=== PATIENT | male | born 1995 | race Caucasian/White ===

== ENCOUNTER → 2016-07-18 | Outpatient (CLI) | payer OTHER ==
[~2016-07-18] MED LIST: ABL/5 PO; ALBUAER2 INH; AMOX250C3 PO; ATV/1 SL; HYDR-3124 PO; LAMO25TA PO; LISD70CA PO; PLMIN90 IN; SERT1TAB68 PO; SNG10 PO
[2016-07-18 14:48] LABS: BASO % 0.3 %; BASO ABS # 0.02 K/uL (0-0.2); COMPLETE YES; EOS % 0.6 %; HEMATOCRIT 46.9 % (42-52); IG% 0.1 %; LYMPH % 27.8 %; LYMPH ABS # 1.93 K/uL (1.2-3.4); MEAN CELL VOLUME 86.2 fL (80-100); MEAN CORPUSCULAR HEMOGLOBIN 29.4 pg (25-34); MEAN CORPUSCULAR HGB CONC 34.1 g/dl (32-36); MONO % 10.5 %; NEUT % 60.7 %; PLATELET COUNT 234 K/uL (130-400); RED BLOOD COUNT 5.44 M/uL (4.7-6.1); WHITE BLOOD COUNT 6.95 K/uL (4.8-10.8)
[2016-07-18 15:29] LABS: BLOOD UREA NITROGEN 17 mg/dl (7-18); CARBON DIOXIDE 27 mmol/L (21-32); CHLORIDE 104 mmol/L (98-107); POTASSIUM 3.4 mmol/L (3.5-5.1); SODIUM 140 mmol/L (136-145)
[2016-07-18 15:51] LABS: URINE APPEARANCE CLEAR (CLEAR); URINE BILIRUBIN NEG (NEG); URINE COLOR YELLOW; URINE NITRITE NEG (NEG); URINE SPECIFIC GRAVITY 1.023 (1.000-1.030); UROBILINOGEN NEG (NEG)
[2016-07-18 15:57] LABS: MANUAL MICROSCOPIC REQUIRED? NO; REVIEW REQ? NO
== END | disposition home or self-care (01) ==
LOC: C.RAD 14:19
PROVIDERS: ATTEND Psychiatry & Neurology Psychiatry
DX: F31.9 Bipolar disorder, unspecified (principal)

== ENCOUNTER → 2016-08-10 | Outpatient (CLI) | payer OTHER | END | disposition home or self-care (01) | LOC: C.LAB 07:37 | PROVIDERS: ATTEND Psychiatry & Neurology Psychiatry | DX: F90.1 Attention-deficit hyperactivity disorder, predominantly hyperactive type (principal); F31.9 Bipolar disorder, unspecified ==

== ENCOUNTER → 2016-09-04 | Outpatient (CLI) | payer OTHER | END | disposition home or self-care (01) | LOC: C.LAB 08:21 | PROVIDERS: ATTEND Psychiatry & Neurology Psychiatry | DX: F90.1 Attention-deficit hyperactivity disorder, predominantly hyperactive type (principal); F31.9 Bipolar disorder, unspecified ==

== ENCOUNTER → 2017-03-01 | Outpatient (CLI) | payer OTHER ==
[2017-03-01 09:50] LABS: ESTIMATED AVERAGE GLUCOSE 108 mg/dl; HA1C FLAG Normal (Normal)
[2017-03-01 09:51] LABS: ALT/SGPT 45 U/L (12-78); AST/SGOT 43 U/L (15-37); BLOOD UREA NITROGEN 14 mg/dl (7-18); BUN/CREATININE RATIO 13.4 (10-20); CALCIUM 9.3 mg/dl (8.5-10.1); CARBON DIOXIDE 27 mmol/L (21-32); CHLORIDE 105 mmol/L (98-107); CREATININE 1.04 mg/dl (0.60-1.40); GLUCOSE 102 mg/dl (70-99); SODIUM 138 mmol/L (136-145)
[2017-03-01 10:00] LABS: ALB/GLOB RATIO 1.1 (0.9-2); ALKALINE PHOSPHATASE 95 U/L (45-117); CHOLESTEROL 126 mg/dl (0-200); CHOLESTEROL/HDL RATIO 2.8; HDL CHOLESTEROL 45 mg/dl; LDL CHOLESTEROL CALCULATED 56 mg/dl; TRIGLYCERIDES 124 mg/dl (0-150); VERY LOW DENSITY LIPOPROT CALC 25 mg/dl
== END | disposition home or self-care (01) ==
LOC: C.LAB 07:41
PROVIDERS: ATTEND Student in an Organized Health Care Education/Training Program
DX: Z79.899 Other long term (current) drug therapy (principal)

== ENCOUNTER → 2017-03-14 | Outpatient (CLI) | payer OTHER ==
--- NOTE | 2017-03-14 16:03 | DIAGNOSTIC IMAGING REPORT ---
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 FINDINGS: The lungs are clear. Cardiac silhouette is normal in size. No pleural effusions. No pneumothorax. IMPRESSION: No acute process. Electronically signed by: Durga Sequeira M.D. 03/14/2017 4:01 PM Dictated Date/Time: 03/14/2017 4:00 PM
== END | disposition home or self-care (01) ==
LOC: C.RADBC 15:32
PROVIDERS: ATTEND Internal Medicine
DX: R76.11 Nonspecific reaction to tuberculin skin test without active tuberculosis (principal)

== ENCOUNTER → 2017-05-29 | Outpatient (CLI) | payer OTHER ==
[2017-05-29 09:50] LABS: BLOOD UREA NITROGEN 12 mg/dl (7-18); CALCIUM 9.2 mg/dl (8.5-10.1); CARBON DIOXIDE 27 mmol/L (21-32); CREATININE 1.16 mg/dl (0.60-1.40); GLUCOSE 134 mg/dl (70-99); POTASSIUM 3.8 mmol/L (3.5-5.1); SODIUM 137 mmol/L (136-145)
== END | disposition home or self-care (01) ==
LOC: C.LAB 08:34
PROVIDERS: ATTEND Student in an Organized Health Care Education/Training Program
DX: Z79.899 Other long term (current) drug therapy (principal)

== ENCOUNTER → 2017-10-17 | Outpatient (CLI) | payer OTHER ==
[2017-10-17 10:38] LABS: BLOOD UREA NITROGEN 14 mg/dl (7-18); CALCIUM 8.5 mg/dl (8.5-10.1); CARBON DIOXIDE 24 mmol/L (21-32); CREATININE 1.11 mg/dl (0.60-1.40); GLUCOSE 221 mg/dl (70-99); POTASSIUM 3.8 mmol/L (3.5-5.1); SODIUM 135 mmol/L (136-145)
== END | disposition home or self-care (01) ==
LOC: C.LAB 08:08
PROVIDERS: ATTEND Student in an Organized Health Care Education/Training Program
DX: Z79.899 Other long term (current) drug therapy (principal)

== ENCOUNTER 2020-02-27 09:42 | Inpatient (IN) ==
[~2020-02-27 09:42] MED LIST changes: -ABL/5 PO; -ALBUAER2 INH; -AMOX250C3 PO; -ATV/1 SL; +CALCIUM CHLORIDE 10% 10 ML SYR IV ONE; -HYDR-3124 PO; -LAMO25TA PO; -LISD70CA PO; +MIDAZOLAM HCL 5 MG/ML VIAL IV ONE; -PLMIN90 IN; +ROCURONIUM BROMIDE 10 MG/ML 5 ML VIAL IV ONE; -SERT1TAB68 PO; -SNG10 PO; +SODIUM BICARB 8.4% INJ 50 MEQ/50 ML SYR IV ONE; +SODIUM CHLORIDE 0.9% 10ML FLUSH IV ONE; +SODIUM CHLORIDE 0.9% INJ 10 ML VIAL IV ONE; +VECURONIUM BROMIDE 10 MG VIAL IV ONE; +fentaNYL citrate 100 MCG/2 ML VIAL IV ONE
[2020-02-27] MEDS ORDERED: ACETAMINOPHEN 500 MG TAB PO STA (10:22)
--- NOTE | 2020-02-27 10:22 | Emergency Department Note ---
History of Present Illness General Chief complaint: Illness Time Seen by Provider: 02/27/20 10:00 Source: patient and other (Staff from [facility]) Mode of arrival: EMS History of Present Illness Provider complaint: Weakness Onset (ago): day(s) 2 Location: upper extremity, lower extremity, left and right Pain Consistency: + constant Maximum Pain Intensity: 0 Quality: + other (Generalized weakness) Relieved By: + none Associated symptoms: + fever/chills and + weakness; no chest pain, no cough, no headaches, no nausea/vomiting and no shortness of breath This is a 24-year-old autistic patient brought in from his [facility] for e valuation of generalized weakness for the past 2 to 3 days. The staff member states that he has not been himself. He is not as active as usual. Today he was found crawling around on the floor. His blood pressure was 70/40 when they took it and he has a history of hypertension normally. The staff states that he has not been complaining of anything and has not been vomiting or having any cough or cold symptoms. There is no Covid at the [facility] amongst the staff or resident population. 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 The patient denies any headache, chest pain, shortness of breath, cough or cold symptoms, nausea or vomiting, abdominal pain, back pain or pain with urination. The staff member also states that sometimes he gets upset this time of year because his mother 3 years ago around [place]. Home Medications Medication Instructions Recorded Confirmed Type benzonatate 200 mg capsule 200 mg PO TID PRN #30 cap 08/12/19 02/27/20 Rx guaifenesin 600 mg tablet, 600 mg PO BID PRN #30 tab 08/12/19 02/27/20 Rx extended release 12 hr ibuprofen 200 mg capsule 200 mg PO Q4H PRN #30 cap 08/12/19 02/27/20 Rx lisdexamfetamine [Vyvanse] 50 mg PO QAM 10/01/19 02/27/20 History topiramate 50 mg PO BID 10/01/19 02/27/20 History carvedilol 6.25 mg tablet 6.25 mg PO BID #60 tab 12/22/19 02/27/20 Rx lithium carbonate 300 mg 1,200 mg PO HS tab 12/22/19 02/27/20 History tablet,extended release melatonin 5 mg capsule 5 mg PO HS #30 cap 01/26/20 02/27/20 Rx fluticasone propionate 110 2 puff INHALATION BID #12 g 01/28/20 02/27/20 Rx mcg/actuation HFA aerosol inhaler albuterol sulfate 2.5 mg CONTINUOUS NEBULIZATION QID 02/17/20 02/27/20 Rx PRN #15 ml cetirizine 10 mg tablet See Rx Instructions PO QAM #90 tab 02/23/20 02/27/20 Rx allopurinol 100 mg PO QAM 02/27/20 02/27/20 History amlodipine 10 mg PO QAM 02/27/20 02/27/20 History aripiprazole 15 mg PO QAM 02/27/20 02/27/20 History ascorbic acid (vitamin C) 1 g PO QAM 02/27/20 02/27/20 History cholecalciferol (vitamin D3) 50 mcg PO QAM 02/27/20 02/27/20 History divalproex 500 mg PO BID 02/27/20 02/27/20 History famotidine 20 mg PO QAM 02/27/20 02/27/20 History lisinopril 40 mg PO QAM 02/27/20 02/27/20 History methylcellulose (laxative) [Fiber 500 mg PO HS 02/27/20 02/27/20 History Therapy (m-cellulose)] montelukast 10 mg PO HS 02/27/20 02/27/20 History multivitamin [Daily Multi-Vitamin] 1 tab PO QAM 02/27/20 02/27/20 History topiramate 25 mg PO BID 02/27/20 02/27/20 History triamterene-hydrochlorothiazid 1 cap PO QAM 02/27/20 02/27/20 History zinc 50 mg PO QAM 02/27/20 02/27/20 History Allergies Allergy/AdvReac Type Severity Reaction Status Date / Time erythromycin base Allergy Unknown RASH, Verified 02/27/20 11:00 DIARRHEA Past Med/Surg History Medical History Acne Acute kidney injury ADHD (attention deficit hyperactivity disorder), combined type Allergic rhinitis Asthma Elevated fasting glucose Hypertension Hyperuricemia Hypokalemia Leukoplakia, gingiva Obesity Obsessive compulsive disorder PPD+ (purified protein derivative positive) Surgical History History of vasectomy Hx of LASIK Family History Unknown Adopted Other No family history of adverse response to anesthesia No family history of bleeding disorder Social History Smoking Status: Never smoker Second Hand Exposure: No; Hx Alcohol Use: No Hx Substance Use: No current occupational status: employed 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 and A total of 10 systems reviewed and were otherwise negative Physical Exam Vital Signs Vital Signs - 24 hr 02/27/20 09:51 02/27/20 10:00 02/27/20 10:30 Temperature 38.3 C H Temperature Source Oral Pulse Rate 99 H 93 H 92 H Pulse Rate [Left Finger] Pulse Rate from SpO2 Sensor 94 H 100 H Pulse Rhythm Regular Respiratory Rate 18 24 22 Respiratory Effort / Characteristics Non-Labored Spontaneous Respiratory Depth Normal Respiratory Pattern Regular Blood Pressure 138/73 132/59 L 125/75 Blood Pressure Mean 94 87 98 Pulse Oximetry 98 95 100 Oxygen Delivery Method Room Air Oxygen Flow Rate Sepsis Recent Fever Within 48 Hours Yes Sepsis New/Unexplained Change in Mental Status No Sepsis Action Taken by Nursing No Action Required 02/27/20 11:19 02/27/20 12:26 02/27/20 12:45 Temperature Temperature Source Pulse Rate 85 74 Pulse Rate [Left Finger] 71 Pulse Rate from SpO2 Sensor 75 Pulse Rhythm Regular Respiratory Rate 20 19 Respiratory Effort / Characteristics Non-Labored Spontaneous Respiratory Depth Respiratory Pattern Blood Pressure 78/27 L Blood Pressure Mean 51 Pulse Oximetry 97 96 97 Oxygen Delivery Method Room Air Nasal Cannula Oxygen Flow Rate 2 2 Sepsis Recent Fever Within 48 Hours Sepsis New/Unexplained Change in Mental Status Sepsis Action Taken by Nursing 02/27/20 12:47 02/27/20 12:48 02/27/20 12:49 Temperature Temperature Source Pulse Rate 72 71 73 Pulse Rate [Left Finger] Pulse Rate from SpO2 Sensor 73 73 73 Pulse Rhythm Respiratory Rate 21 19 19 Respiratory Effort / Characteristics Respiratory Depth Respiratory Pattern Blood Pressure 69/25 L 76/26 L 68/22 L Blood Pressure Mean 51 47 38 Pulse Oximetry 98 98 98 Oxygen Delivery Method Oxygen Flow Rate 2 2 2 Sepsis Recent Fever Within 48 Hours Sepsis New/Unexplained Change in Mental Status Sepsis Action Taken by Nursing 02/27/20 12:50 02/27/20 13:01 02/27/20 13:06 Temperature Temperature Source Pulse Rate 72 69 69 Pulse Rate [Left Finger] Pulse Rate from SpO2 Sensor 73 70 69 Pulse Rhythm Respiratory Rate 19 22 23 Respiratory Effort / Characteristics Respiratory Depth Respiratory Pattern Blood Pressure 68/26 L 71/31 L 80/34 L Blood Pressure Mean 48 49 47 Pulse Oximetry 98 98 99 Oxygen Delivery Method Oxygen Flow Rate 2 2 2 Sepsis Recent Fever Within 48 Hours Sepsis New/Unexplained Change in Mental Status Sepsis Action Taken by Nursing 02/27/20 13:11 02/27/20 13:16 02/27/20 13:20 Temperature Temperature Source Pulse Rate 65 65 69 Pulse Rate [Left Finger] Pulse Rate from SpO2 Sensor 66 66 68 Pulse Rhythm Respiratory Rate 25 H 22 24 Respiratory Effort / Characteristics Respiratory Depth Respiratory Pattern Blood Pressure 86/32 L 87/26 L 94/32 L Blood Pressure Mean 45 34 44 Pulse Oximetry 99 100 100 Oxygen Delivery Method Oxygen Flow Rate 2 2 2 Sepsis Recent Fever Within 48 Hours Sepsis New/Unexplained Change in Mental Status Sepsis Action Taken by Nursing 02/27/20 13:26 02/27/20 13:30 02/27/20 13:36 Temperature Temperature Source Pulse Rate 68 75 74 Pulse Rate [Left Finger] Pulse Rate from SpO2 Sensor 67 76 71 Pulse Rhythm Respiratory Rate 28 H 24 24 Respiratory Effort / Characteristics Respiratory Depth Respiratory Pattern Blood Pressure 93/43 L 122/52 L 111/62 Blood Pressure Mean 64 72 72 Pulse Oximetry 99 90 93 Oxygen Delivery Method Oxygen Flow Rate 3 3 3 Sepsis Recent Fever Within 48 Hours Sepsis New/Unexplained Change in Mental Status Sepsis Action Taken by Nursing 02/27/20 13:40 02/27/20 13:45 Temperature Temperature Source Pulse Rate 74 73 Pulse Rate [Left Finger] Pulse Rate from SpO2 Sensor 74 72 Pulse Rhythm Respiratory Rate 26 H 27 H Respiratory Effort / Characteristics Respiratory Depth Respiratory Pattern Blood Pressure 107/69 132/67 Blood Pressure Mean 98 73 Pulse Oximetry 94 93 Oxygen Delivery Method Oxygen Flow Rate 3 3 Sepsis Recent Fever Within 48 Hours Sepsis New/Unexplained Change in Mental Status Sepsis Action Taken by Nursing Constitutional: Vital signs reviewed. Febrile and warm to touch. Slightly hypertensive. Eyes: Pupils are equal round reactive to light. Conjunctiva are noninjected. ENT: Pharynx is clear without erythema or exudate. Mucous membranes are moist. Neck supple without meningeal signs. Respiratory: Clear to auscultation bilaterally. Breath sounds are equal bilaterally. Cardiovascular: Regular rate and rhythm. No rubs or gallops. GI: Soft, nondistended and nontender. Bowel sounds are present. Musculoskeletal: No peripheral edema. No lower extremity tenderness. Integumentary: No cyanosis. or jaundice. Neurological: The patient is awake and alert. No focal deficits. Psychiatric: Unable to assess. Does not appear agitated. Answers questions letter yes or no. Course Administered Medications Norepinephrine Bitartrate (Levophed/D5w) 8 mg in 508 mls @ 16.821 mls/hr IV .Q24H [facility]; Protocol Stop: 03/28/20 14:31 Last Titration: 02/27/20 15:09 Dose: 0.07 mcg/kg/min, 23.6 mls/hr Documented by: [id number] Admin: 02/27/20 14:48 Dose: 0.05 mcg/kg/min, 16.8 mls/hr Documented by: [id number] Cosigned by: [id number] Discontinued Medications Acetaminophen (Acetaminophen 500 Mg Tab) 1,000 mg PO NOW STA Stop: 02/27/20 10:23 Last Admin: 02/27/20 11:15 Dose: 1,000 mg Documented by: [id number] Albuterol (Albuterol 0.083% Nebu Soln 3 Ml Vial) 2.5 mg NEB NOW STA Stop: 02/27/20 11:53 Last Admin: 02/27/20 12:26 Dose: 2.5 mg Documented by: [id number] Dextrose (Dextrose 50% 50 Ml Syringe) 50 ml IV NOW STA Stop: 02/27/20 11:53 Last Admin: 02/27/20 12:10 Dose: 50 ml Documented by: [id number] Dextrose (Dextrose 50% 50 Ml Syringe) 50 ml IV NOW STA Stop: 02/27/20 14:20 Last Admin: 02/27/20 14:35 Dose: Not Given Documented by: [id number] Dextrose (Dextrose 50% 50 Ml Syringe) 50 ml IV NOW ONE Stop: 02/27/20 14:20 Last Admin: 02/27/20 14:35 Dose: Not Given Documented by: [id number] Dextrose (Dextrose 50% 50 Ml Syringe) Confirm Administered Dose 100 ml IV .STK- MED ONE Stop: 02/27/20 14:20 Last Admin: 02/27/20 14:35 Dose: 100 ml Documented by: [id number] Haloperidol Lactate (Haloperidol Lactate 5 Mg/Ml 1 Ml Vial) Confirm Administered Dose 5 mg .ROUTE .STK-MED ONE Stop: 02/27/20 10:41 Last Admin: 02/27/20 10:47 Dose: 5 mg Documented by: [id number] Piperacillin Sod/Tazobactam Sod (Zosyn) 4.5 gm in 120 mls @ 240 mls/hr IV NOW ONE Stop: 02/27/20 11:36 Last Infusion: 02/27/20 12:26 Dose: 0 mls/hr Documented by: [id number] Admin: 02/27/20 11:26 Dose: 240 mls/hr Documented by: [id number] Sodium Chloride (Nss 1000ml) 1,000 mls @ 999 mls/hr IV .Q1H1M ONE Stop: 02/27/20 12:54 Last Infusion: 02/27/20 14:09 Dose: 0 mls/hr Documented by: [id number] Admin: 02/27/20 12:25 Dose: 999 mls/hr Documented by: [id number] Sodium Chloride (Nss 1000ml) 1,000 mls @ 999 mls/hr IV .Q1H1M ONE Stop: 02/27/20 13:53 Last Infusion: 02/27/20 14:09 Dose: 0 mls/hr Documented by: [id number] Admin: 02/27/20 13:07 Dose: 999 mls/hr Documented by: [id number] Vancomycin HCl 1,750 mg/ (Sodium Chloride) 535 mls @ 200 mls/hr IV NOW STA Stop: 02/27/20 18:12 Last Admin: 02/27/20 16:16 Dose: 200 mls/hr Documented by: [id number] Insulin Human Regular (Novolin-R Insulin Per Unit Charge) 8 units IV NOW STA Stop: 02/27/20 11:53 Last Admin: 02/27/20 12:09 Dose: 8 units Documented by: [id number] Cosigned by: [id number] Lorazepam (Lorazepam 2 Mg/4 Ml Vial) Confirm Administered Dose 2 mg .ROUTE .STK- MED ONE Stop: 02/27/20 10:41 Last Admin: 02/27/20 10:47 Dose: 2 mg Documented by: [id number] Miscellaneous (Stat Iv Infusion Titration Per Protocol) 1 ea N/A NOW STA Stop: 02/27/20 14:33 Last Admin: 02/27/20 15:09 Dose: Not Given Documented by: [id number] Sodium Bicarbonate (Sodium Bicarb 8.4% Inj 50 Meq/50 Ml Syr) Confirm Administered Dose 100 meq IV .STK-MED ONE Stop: 02/27/20 14:32 Last Admin: 02/27/20 14:36 Dose: 100 meq Documented by: [id number] Sodium Bicarbonate (Sodium Bicarb 8.4% Inj 50 Meq/50 Ml Syr) 100 meq IV NOW STA Stop: 02/27/20 14:33 Last Admin: 02/27/20 14:36 Dose: Not Given Documented by: [id number] Critical Care Time Critical Care Time: Yes Total Critical Care Time: 45 I have personally spent approximately 45 minutes of critical care time in the direct management of this patient. This includes bedside care, interpretation of diagnostic studies, and testing, discussion with consultants, patient, and family members, and other required patient management activities. These minutes are in excess of all separately billable procedures. Medical Decision Making Differential Diagnosis Sepsis, bacteremia, UTI, pneumonia, lithium toxicity, COVID-19 Medical Records Attestation: I reviewed the patient's medical records. I did perform a limited focused review of portions of the patient's old chart on the electronic medical record. The patient has had no recent pertinent visits to this hospital. Home Medications Current Medication List: was personally reviewed by me Laboratory Data Attestation: I reviewed the patient's lab results. Result diagrams: 02/27/20 11:00 02/27/20 14:39 Lab Results 02/27/20 02/27/20 02/27/20 Range/Units 11:00 11:00 11:00 WBC 12.70 H (4.8-10.8) K/uL RBC 4.71 (4.7-6.1) M/uL Hgb 14.9 (14.0-18.0) g/dL Hct 46.4 (42-52) % MCV 98.5 (80-100) fL MCH 31.6 (25-34) pg MCHC 32.1 (32-36) g/dL RDW Std Deviation 48.3 H (36.4-46.3) fL RDW Coeff of Richard 13.4 (11.5-14.5) % Plt Count 248 (130-400) K/uL MPV 11.1 H (7.4-10.4) fL Immature Gran % (Auto) 0.2 % Neut % (Auto) 70.7 % Lymph % (Auto) 12.9 % Craven % (Auto) 14.7 % Eos % (Auto) 1.3 % Baso % (Auto) 0.2 % Neut # (Auto) 8.97 H (1.4-6.5) K/uL Lymph # (Auto) 1.64 (1.2-3.4) K/uL Craven # (Auto) 1.87 H (0.11-0.59) K/uL Eos # (Auto) 0.17 (0-0.5) K/uL Baso # (Auto) 0.03 (0-0.2) K/uL Immature Gran # (Auto) 0.02 (0.00-0.02) K/uL PT 10.6 (9.0-12.0) Seconds INR 1.0 (0.9-1.1) APTT 27.8 (21.0-31.0) Seconds PTT Ratio 1.0 Sodium 134 L (136-145) mmol/L Potassium 6.1 H* (3.5-5.1) mmol/L Chloride 107 (98-107) mmol/L Carbon Dioxide 22 (21-32) mmol/L Anion Gap 6.0 (3-11) BUN 92 H (7-18) mg/dl Creatinine 4.57 H* (0.6-1.4) mg/dl Est Cr Clr Drug Dosing Not Reportable Est GFR ( Amer) 19.1 Est GFR (Non-Af Amer) 16.5 BUN/Creatinine Ratio 20.1 H (10-20) Glucose 104 H (70-99) mg/dl Lactate (0.4-2.0) mmol/L Uric Acid (2.6-7.2) mg/dl Calcium 9.8 (8.5-10.1) mg/dl Magnesium (1.8-2.4) mg/dl Total Bilirubin 1.1 H (0.2-1) mg/dl AST 36 (15-37) U/L ALT 41 (12-78) U/L Alkaline Phosphatase 114 (45-117) U/L Troponin I (0-0.045) ng/ml Total Protein 8.8 H (6.4-8.2) gm/dl Albumin 4.3 (3.4-5.0) gm/dl Globulin 4.5 H (2.5-4.0) gm/dl Albumin/Globulin Ratio 1.0 (0.9-2) Procalcitonin (0-0.5) ng/ml Salicylates (2.8-20) mg/dl Acetaminophen (10-30) ug/ml [place] (0.6-1.2) mmol/L Adenovirus (PCR) (NotDetected) B. pertussis DNA (PCR) (NotDetected) B.parapertussis DNA PCR (NotDetected) C. pneumoniae DNA (PCR) (NotDetected) Coronavirus OC43 (PCR) (NotDetected) Coronavirus HKU1 (PCR) (NotDetected) Coronavirus 229E (PCR) (NotDetected) COVID-19 Eval Order SARS-CoV-2 (PCR) (NotDetected) Coronavirus NL63 (PCR) (NotDetected) Human Metapneumovir PCR (NotDetected) Influenza Type A (PCR) (NotDetected) Influ A Molecular Assay (Negative) Influenza Type B (PCR) (NotDetected) Influ B Molecular Assay (Negative) M. pneumoniae (PCR) (NotDetected) Parainfluenza 1 (PCR) (NotDetected) Parainfluenza 2 (PCR) (NotDetected) Parainfluenza 3 (PCR) (NotDetected) Parainfluenza 4 (PCR) (NotDetected) RSV (PCR) (NotDetected) Entero/Rhino (PCR) (NotDetected) SARS-CoV-2, RNA, NAAT (NEGATIVE) 02/27/20 02/27/20 02/27/20 Range/Units 11:00 11:00 11:00 WBC (4.8-10.8) K/uL RBC (4.7-6.1) M/uL Hgb (14.0-18.0) g/dL Hct (42-52) % MCV (80-100) fL MCH (25-34) pg MCHC (32-36) g/dL RDW Std Deviation (36.4-46.3) fL RDW Coeff of Richard (11.5-14.5) % Plt Count (130-400) K/uL MPV (7.4-10.4) fL Immature Gran % (Auto) % Neut % (Auto) % Lymph % (Auto) % Craven % (Auto) % Eos % (Auto) % Baso % (Auto) % Neut # (Auto) (1.4-6.5) K/uL Lymph # (Auto) (1.2-3.4) K/uL [place] # (Auto) (0.11-0.59) K/uL Eos # (Auto) (0-0.5) K/uL Baso # (Auto) (0-0.2) K/uL Immature Gran # (Auto) (0.00-0.02) K/uL PT (9.0-12.0) Seconds INR (0.9-1.1) APTT (21.0-31.0) Seconds PTT Ratio Sodium (136-145) mmol/L Potassium (3.5-5.1) mmol/L Chloride (98-107) mmol/L Carbon Dioxide (21-32) mmol/L Anion Gap (3-11) BUN (7-18) mg/dl Creatinine (0.6-1.4) mg/dl Est Cr Clr Drug Dosing Est GFR ( Amer) Est GFR (Non-Af Amer) BUN/Creatinine Ratio (10-20) Glucose (70-99) mg/dl Lactate 2.6 H* (0.4-2.0) mmol/L Uric Acid 19.4 H (2.6-7.2) mg/dl Calcium (8.5-10.1) mg/dl Magnesium 3.7 H (1.8-2.4) mg/dl Total Bilirubin (0.2-1) mg/dl AST (15-37) U/L ALT (12-78) U/L Alkaline Phosphatase (45-117) U/L Troponin I < 0.015 (0-0.045) ng/ml Total Protein (6.4-8.2) gm/dl Albumin (3.4-5.0) gm/dl Globulin (2.5-4.0) gm/dl Albumin/Globulin Ratio (0.9-2) Procalcitonin (0-0.5) ng/ml Salicylates < 1.7 L (2.8-20) mg/dl Acetaminophen < 2 L (10-30) ug/ml [place] 5.5 H* (0.6-1.2) mmol/L Adenovirus (PCR) (NotDetected) B. pertussis DNA (PCR) (NotDetected) B.parapertussis DNA PCR (NotDetected) C. pneumoniae DNA (PCR) (NotDetected) Coronavirus OC43 (PCR) (NotDetected) Coronavirus HKU1 (PCR) (NotDetected) Coronavirus 229E (PCR) (NotDetected) COVID-19 Eval Order SARS-CoV-2 (PCR) (NotDetected) Coronavirus NL63 (PCR) (NotDetected) Human Metapneumovir PCR (NotDetected) Influenza Type A (PCR) (NotDetected) Influ A Molecular Assay (Negative) Influenza Type B (PCR) (NotDetected) Influ B Molecular Assay (Negative) M. pneumoniae (PCR) (NotDetected) Parainfluenza 1 (PCR) (NotDetected) Parainfluenza 2 (PCR) (NotDetected) Parainfluenza 3 (PCR) (NotDetected) Parainfluenza 4 (PCR) (NotDetected) RSV (PCR) (NotDetected) Entero/Rhino (PCR) (NotDetected) SARS-CoV-2, RNA, NAAT (NEGATIVE) 02/27/20 02/27/20 02/27/20 Range/Units 11:09 11:15 11:15 WBC (4.8-10.8) K/uL RBC (4.7-6.1) M/uL Hgb (14.0-18.0) g/dL Hct (42-52) % MCV (80-100) fL MCH (25-34) pg MCHC (32-36) g/dL RDW Std Deviation (36.4-46.3) fL RDW Coeff of Richard (11.5-14.5) % Plt Count (130-400) K/uL MPV (7.4-10.4) fL Immature Gran % (Auto) % Neut % (Auto) % Lymph % (Auto) % Craven % (Auto) % Eos % (Auto) % Baso % (Auto) % Neut # (Auto) (1.4-6.5) K/uL Lymph # (Auto) (1.2-3.4) K/uL [place] # (Auto) (0.11-0.59) K/uL Eos # (Auto) (0-0.5) K/uL Baso # (Auto) (0-0.2) K/uL Immature Gran # (Auto) (0.00-0.02) K/uL PT (9.0-12.0) Seconds INR (0.9-1.1) APTT (21.0-31.0) Seconds PTT Ratio Sodium (136-145) mmol/L Potassium (3.5-5.1) mmol/L Chloride (98-107) mmol/L Carbon Dioxide (21-32) mmol/L Anion Gap (3-11) BUN (7-18) mg/dl Creatinine (0.6-1.4) mg/dl Est Cr Clr Drug Dosing Est GFR ( Amer) Est GFR (Non-Af Amer) BUN/Creatinine Ratio (10-20) Glucose (70-99) mg/dl Lactate (0.4-2.0) mmol/L Uric Acid (2.6-7.2) mg/dl Calcium (8.5-10.1) mg/dl Magnesium (1.8-2.4) mg/dl Total Bilirubin (0.2-1) mg/dl AST (15-37) U/L ALT (12-78) U/L Alkaline Phosphatase (45-117) U/L Troponin I (0-0.045) ng/ml Total Protein (6.4-8.2) gm/dl Albumin (3.4-5.0) gm/dl Globulin (2.5-4.0) gm/dl Albumin/Globulin Ratio (0.9-2) Procalcitonin 0.76 H (0-0.5) ng/ml Salicylates (2.8-20) mg/dl Acetaminophen (10-30) ug/ml [place] (0.6-1.2) mmol/L Adenovirus (PCR) Not Detected (NotDetected) B. pertussis DNA (PCR) Not Detected (NotDetected) B.parapertussis DNA PCR Not Detected (NotDetected) C. pneumoniae DNA (PCR) Not Detected (NotDetected) Coronavirus OC43 (PCR) Not Detected (NotDetected) Coronavirus HKU1 (PCR) Not Detected (NotDetected) Coronavirus 229E (PCR) Not Detected (NotDetected) COVID-19 Eval Order SARS-CoV-2 (PCR) Not Detected (NotDetected) Coronavirus NL63 (PCR) Not Detected (NotDetected) Human Metapneumovir PCR Not Detected (NotDetected) Influenza Type A (PCR) Not Detected (NotDetected) Influ A Molecular Assay Negative (Negative) Influenza Type B (PCR) Not Detected (NotDetected) Influ B Molecular Assay Negative (Negative) M. pneumoniae (PCR) Not Detected (NotDetected) Parainfluenza 1 (PCR) Not Detected (NotDetected) Parainfluenza 2 (PCR) Not Detected (NotDetected) Parainfluenza 3 (PCR) Not Detected (NotDetected) Parainfluenza 4 (PCR) Not Detected (NotDetected) RSV (PCR) Not Detected (NotDetected) Entero/Rhino (PCR) Not Detected (NotDetected) SARS-CoV-2, RNA, NAAT (NEGATIVE) 02/27/20 02/27/20 02/27/20 Range/Units 11:18 11:18 13:41 WBC (4.8-10.8) K/uL RBC (4.7-6.1) M/uL Hgb (14.0-18.0) g/dL Hct (42-52) % MCV (80-100) fL MCH (25-34) pg MCHC (32-36) g/dL RDW Std Deviation (36.4-46.3) fL RDW Coeff of Richard (11.5-14.5) % Plt Count (130-400) K/uL MPV (7.4-10.4) fL Immature Gran % (Auto) % Neut % (Auto) % Lymph % (Auto) % [place] % (Auto) % Eos % (Auto) % Baso % (Auto) % Neut # (Auto) (1.4-6.5) K/uL Lymph # (Auto) (1.2-3.4) K/uL [place] # (Auto) (0.11-0.59) K/uL Eos # (Auto) (0-0.5) K/uL Baso # (Auto) (0-0.2) K/uL Immature Gran # (Auto) (0.00-0.02) K/uL PT (9.0-12.0) Seconds INR (0.9-1.1) APTT (21.0-31.0) Seconds PTT Ratio Sodium (136-145) mmol/L Potassium (3.5-5.1) mmol/L Chloride (98-107) mmol/L Carbon Dioxide (21-32) mmol/L Anion Gap (3-11) BUN (7-18) mg/dl Creatinine (0.6-1.4) mg/dl Est Cr Clr Drug Dosing Est GFR ( Amer) Est GFR (Non-Af Amer) BUN/Creatinine Ratio (10-20) Glucose (70-99) mg/dl Lactate 0.5 (0.4-2.0) mmol/L Uric Acid (2.6-7.2) mg/dl Calcium (8.5-10.1) mg/dl Magnesium (1.8-2.4) mg/dl Total Bilirubin (0.2-1) mg/dl AST (15-37) U/L ALT (12-78) U/L Alkaline Phosphatase (45-117) U/L Troponin I (0-0.045) ng/ml Total Protein (6.4-8.2) gm/dl Albumin (3.4-5.0) gm/dl Globulin (2.5-4.0) gm/dl Albumin/Globulin Ratio (0.9-2) Procalcitonin (0-0.5) ng/ml Salicylates (2.8-20) mg/dl Acetaminophen (10-30) ug/ml [place] (0.6-1.2) mmol/L Adenovirus (PCR) (NotDetected) B. pertussis DNA (PCR) (NotDetected) B.parapertussis DNA PCR (NotDetected) C. pneumoniae DNA (PCR) (NotDetected) Coronavirus OC43 (PCR) (NotDetected) Coronavirus HKU1 (PCR) (NotDetected) Coronavirus 229E (PCR) (NotDetected) COVID-19 Eval Order Covid19 IDNow [facility] SARS-CoV-2 (PCR) (NotDetected) Coronavirus NL63 (PCR) (NotDetected) Human Metapneumovir PCR (NotDetected) Influenza Type A (PCR) (NotDetected) Influ A Molecular Assay (Negative) Influenza Type B (PCR) (NotDetected) Influ B Molecular Assay (Negative) M. pneumoniae (PCR) (NotDetected) Parainfluenza 1 (PCR) (NotDetected) Parainfluenza 2 (PCR) (NotDetected) Parainfluenza 3 (PCR) (NotDetected) Parainfluenza 4 (PCR) (NotDetected) RSV (PCR) (NotDetected) Entero/Rhino (PCR) (NotDetected) SARS-CoV-2, RNA, NAAT NEGATIVE (NEGATIVE) Imaging Data Radiologist's Impression: XR chest 1V portable CLINICAL HISTORY: SEPSIS COMPARISON STUDY: 02/27/2019 FINDINGS: The heart is borderline enlarged. There is a poor inspiration. There are subtle increased markings at the right lung base. This could represent a minimal pneumonitis. Clinical and radiographic follow-up is recommended.[ IMPRESSION: 1. Hypoventilatory study 2. Minimal right basilar airspace opacities possibly representing a minimal pneumonitis. Clinical and radiographic follow-up is recommended. ACT 112: Negative or not required by law. Electronically signed by: Guy Tomlin M.D. 02/27/2020 11:02 AM Dictated: 02/27/20 1101 Transcribed: 02/27/20 1101 XR chest 1V portable CLINICAL HISTORY: Hypoxia RESPIRATORY FAILURE COMPARISON STUDY: 02/27/2020 FINDINGS: The heart is borderline enlarged. There is been interval placement of an endotracheal tube which projects into the left mainstem bronchus, 24 mm distal to the jennifer. The tube should be repositioned. This finding will be called to the floor. There is gastric distention. There is new right upper lobe consolidation/collapse. There are left upper lobe airspace opacities. Left lower lobe air bronchograms are also visualized.[ IMPRESSION: 1. Progressive multifocal airspace opacities 2. Endotracheal tube positioned in the left mainstem bronchus. This tube should be repositioned 3. Gastric distention ACT 112: Negative or not required by law. Electronically signed by: Guy Tomlin M.D. 02/27/2020 5:18 PM ECG Data Attestation: I personally reviewed and interpreted this ECG as follows: Indication: + weakness Rate (beats per minute): 96 Rhythm: + normal sinus ECG Intervals/blocks: + Prolonged QT ECG [place]: + Right axis deviation ECG ST segments: no ST elevation ECG Findings: no PVCs MDM Narrative I did evaluate the patient as noted above. The patient is presenting with generalized weakness and a report of hypotension at home. He is slightly hypertensive here and febrile with a temperature of 38.3. He was placed in respiratory isolation. I did order testing for COVID-19 as well as influenza. He was given Tylenol p.o. the patient became extremely combative when they try to do an x-ray or place an IV. He would not allow them to provide care and became extremely agitated. He was therefore given Ativan 2 mg and Haldol 5 mg IM. IV access was established. I did place an order for continuous cardiac monitoring. The monitor showed normal sinus rhythm at a rate of 99 bpm. I did order and personally review the patient's 12-lead EKG as described above. He has a prolonged QT interval. He will not receive any more QT prolonging drugs such as Haldol. I did order and personally reviewed the images of the patient's chest x-ray as described above. There is what appears to be a right lower lobe infiltrate concerning for pneumonia. His COVID-19 test came back negative. Influenza was also negative. I did order 2 sets of blood cultures and I did start him immediately on Zosyn 4.5 g IV for possible sepsis. I did order and review the patient's blood work as noted in the electronic medical record. The patient's white blood cell count is 12.7. Chemistries demonstrated acute kidney injury with a creatinine of 4.6. Potassium was 6.1. Uric acid is 19.4. Lactate is 2.6. Magnesium is 3.7. Troponin is negative. Toxicology screen shows a lithium of 5.5. I did treat the patient with IV glucose and insulin. He was also given an albuterol nebulizer. I did not give him IV calcium as he has no widening of the QRS or ectopy. EKG does not demonstrate significant signs of hyperkalemia. I did also treat him with a liter of normal saline IV. I immediately called Dr. Dangelo of nephrology. She stated that she would call the dialysis nurse to let me know if we could have him dialyzed here rather than transferred. There was some delay in reaching the dialysis nurse. I did have the ED clerk secretary call the dialysis nurse who was able to reach her. I did speak to her and explained the situation and she stated she would be in within an hour. I did discuss the case with Dr. Gonzales. He did see the patient and placed a dialysis catheter. Dr. Dangelo did see the patient in the ER and order the Martinez catheter. The patient became hypotensive and I ordered an additional liter of normal saline IV. Dr. Gonzales placed him on Levophed. Dr. Gonzales and I then went to take care of a new patient in the ED in cardiac arrest. We were both held up in that room for some time. When we were able to come out the nurse told me that she had to place the patient on oxygen as his pulse ox seem to be dropping. He was breathing on his own with very sonorous snoring respirations. I did attempt to place a nasal airway but the patient would not tolerate it. I did place him on high flow oxygen with a pulse ox in the low 90s. I did have a conversation with his healthcare proxy Veronica Green, whom I have been speaking with throughout his ED visit about the patient's care. She stated that the patient has a living will and he was DNR but she did not know about DNI. She stated that in this situation if he needed intubation she was okay with it. She did have a family member email me a copy of his living well which I printed out and gave to Dr. Gonzales. He did order an ABG was ordered which demonstrated significant hypoxemia. Dr. Gonzales did make the decision to intubate the patient. Apparently the patient had significant laryngeal edema and he was a very difficult intubation. I was later called into the room by one of the ED techs. Dr. Gonzales was in the process of performing cricothyrotomy. Pulse ox was in the 20s. I did make an attempt to intubate the patient using glide scope but was unsuccessful as the stylet did not fit the ET tube. I removed the tube and respiratory therapy resumed bag valve mask intubation. I did obtain a larger ET tube that would fit the stylette. I did attempt to intubate him again but Dr. Gonzales did perform cricothyrotomy and so I withdrew the tube and he attempted to pass it through the incision he made. This was unsuccessful and Dr. Calvert did make an attempt and was successful in intubating the patient. Chest x-ray demonstrates multifocal airway opacities. Martinez catheter output showed over 500 cc of urine. He was then immediately taken to the ICU for dialysis and further care. Impression & Plan Acute kidney injury, [place] toxicity, Acute hyperkalemia, Hypermagnesemia, Sepsis, Respiratory failure Discharge Plan Visit Data Chief Complaint: Illness ED Provider: Gianfranco Shahid Discharge Problem: Acute kidney injury, [place] toxicity, Acute hyperkalemia, Hypermagnesemia, Sepsis, Respiratory failure Patient Disposition: Admitted As Inpatient Discharge Instructions Interventions: ED Discharge Assessment Last Done: 02/27/20 17:15 Discharge Problem: [place] toxicity Qualifiers: Encounter type: initial encounter Injury intent: accidental or unintentional Qualified Code(s): T56.891A - Toxic effect of other metals, accidental (unintentional), initial encounter Sepsis Qualifiers: Sepsis type: sepsis due to unspecified organism Sepsis acute organ dysfunction status: with acute organ dysfunction Severe sepsis acute organ dysfunction type: acute renal failure Acute renal failure type: unspecified Severe sepsis shock status: with septic shock Qualified Code(s): A41.9 - Sepsis, unspecified organism Respiratory failure Qualifiers: Chronicity: acute Respiratory failure complication: hypoxia Qualified Code(s): J96.01 - Acute respiratory failure with hypoxia
[2020-02-27] MEDS ORDERED: HALOPERIDOL LACTATE 5 MG/ML 1 ML VIAL ONE (10:40)
[2020-02-27] MEDS ORDERED: LORazepam 2 MG/4 ML VIAL ONE ×2 (10:40→21:27)
--- NOTE | 2020-02-27 11:03 | XRay Report ---
XR chest 1V portable CLINICAL HISTORY: SEPSIS COMPARISON STUDY: 02/27/2019 FINDINGS: The heart is borderline enlarged. There is a poor inspiration. There are subtle increased m arkings at the right lung base. This could represent a minimal pneumonitis. Clinical and radiographic follow-up is recommended.[ IMPRESSION: 1. Hypoventilatory study 2. Minimal right basilar airspace opacities possibly representing a minimal pneumonitis. Clinical and radiographic follow-up is recommended. ACT 112: Negative or not required by law. Electronically signed by: Guy Tomlin M.D. 02/27/2020 11:02 AM
[2020-02-27] MEDS ORDERED: PIPERACILL/TAZOBAC CONSULT ACTIVE PRN ×2 (11:07→18:11)
[2020-02-27] MEDS ORDERED: PIPERACILLIN/TAZOBACTAM 4.5 GM/120 ML BAG IV ONE (11:07)
[2020-02-27 11:17] LABS: Basophils # (auto) 0.03 K/uL (0-0.2); Basophils % (auto) 0.2 %; Eosinophils # (auto) 0.17 K/uL (0-0.5); Eosinophils % (auto) 1.3 %; Hematocrit (blood only) 46.4 % (42-52); Hemoglobin 14.9 g/dL (14.0-18.0); Immature Granulocytes # (auto) 0.02 K/uL (0.00-0.02); Immature Granulocytes % (auto) 0.2 %; Lymphocytes # (auto) 1.64 K/uL (1.2-3.4); Lymphocytes % (auto) 12.9 %; Mean Corpuscular Hemoglobin 31.6 pg (25-34); Mean Corpuscular Hgb Conc 32.1 g/dL (32-36); Mean Corpuscular Volume 98.5 fL (80-100); Mean Platelet Volume 11.1 fL (7.4-10.4); Monocytes # (auto) 1.87 K/uL (0.11-0.59); Monocytes % (auto) 14.7 %; Neutrophils # (auto) 8.97 K/uL (1.4-6.5); Neutrophils % (auto) 70.7 %; Platelet Count 248 K/uL (130-400); RDW Coefficient of Variation 13.4 % (11.5-14.5); RDW Standard Deviation 48.3 fL (36.4-46.3); Red Blood Count 4.71 M/uL (4.7-6.1)
[2020-02-27 11:29] LABS: Partial Thromboplastin Time 27.8 Seconds (21.0-31.0); Prothrombin Time 10.6 Seconds (9.0-12.0)
[2020-02-27 11:41] LABS: Magnesium 3.7 mg/dl (1.8-2.4); Troponin I < 0.015 ng/ml (0-0.045); Uric Acid 19.4 mg/dl (2.6-7.2)
[2020-02-27 11:42] LABS: Acetaminophen < 2 ug/ml (10-30); Salicylate < 1.7 mg/dl (2.8-20)
[2020-02-27 11:42] LABS: Influenza A virus by PCR Negative (Negative); Influenza B virus by PCR Negative (Negative)
[2020-02-27 11:48] LABS: Alanine Aminotransferase 41 U/L (12-78); Albumin Level 4.3 gm/dl (3.4-5.0); Alkaline Phosphatase 114 U/L (45-117); Aspartate Aminotransferase 36 U/L (15-37); BUN Creatinine Ratio 20.1 (10-20); Bilirubin,Total 1.1 mg/dl (0.2-1); Blood Urea Nitrogen 92 mg/dl (7-18); Calcium 9.8 mg/dl (8.5-10.1); Carbon Dioxide 22 mmol/L (21-32); Chloride 107 mmol/L (98-107); Est GFR (African American) 19.1; Est GFR (Non-African American) 16.5; Globulin 4.5 gm/dl (2.5-4.0); Glucose 104 mg/dl (70-99); Potassium 6.1 mmol/L (3.5-5.1); Sodium 134 mmol/L (136-145); Total Protein 8.8 gm/dl (6.4-8.2)
[2020-02-27] MEDS ORDERED: DEXTROSE 50% 50 ML SYRINGE IV STA ×2 (11:52→14:19)
[2020-02-27] MEDS ORDERED: NovoLIN-R INSULIN PER UNIT CHARGE IV STA (11:52)
[2020-02-27] MEDS ORDERED: ALBUTEROL 0.083% NEBU SOLN 3 ML VIAL NEB STA (11:52)
[2020-02-27] MEDS ORDERED: SODIUM CHLORIDE 0.9% 1000ML 1,000 ML IV ONE ×2 (11:54→12:53)
[2020-02-27 12:08] LABS: Lithium 5.5 mmol/L (0.6-1.2)
--- NOTE | 2020-02-27 13:45 | History & Physical Report ---
Date of Service February 27, 2020 Assessment & Plan (1) Free [place]il poisoning: Emergent dialysis -Seen by nephrology -Repeat lithium level ordered for 1800 Present on Admission?: Yes (2) Acute kidney injury: Suspect prerenal etiology -Emergent dialysis Present on Admission?: Yes (3) Hyperkalemia: Undergoing emergent dialysis Present on Admission?: Yes (4) Lactic acidosis: Secondary to acute kidney failure -Thiamine daily Present on Admission?: Yes (5) Hyperuricemia: Management per nephrology -Undergoing emergent dialysis (6) Dehydration: Fluid resuscitation in emergency department Present on Admission?: Yes (7) Febrile illness, acute: Blood cultures Urine culture Upper respiratory panel Covid negative x1 -Zosyn given in emergency department -Vancomycin ordered to be given after emergent dialysis Present on Admission?: Yes Admission and Anticipated Discharge Date Admission Date: February 27, 2020 Anticipated date of discharge: 03/01/20 History of Present Illness Chief Complaint: Acute kidney injury Primary Care Provider: Rodrigo Riggins MD History is obtained from prior records and the emergency department staff, patient is unable to participate in the history secondary to decreased mental status from sedation secondary to inability to follow commands to facilitate work-up and treatment. Patient is a 24-year-old autistic male who was brought from his [facility] for generalized weakness over the past 2 to 3 days. Staff member reported that he not been himself and not as active as usual. Today he was found crawling on the floor and had a low blood pressure. He has a history of hypertension as well as mood disorder Patient's is Covid negative upon rapid testing today. Allergies Allergy/AdvReac Type Severity Reaction Status Date / Time erythromycin base Allergy Unknown RASH, Verified 02/27/20 11:00 DIARRHEA Home Medications Medication Instructions Recorded Confirmed Type benzonatate 200 mg capsule 200 mg PO TID PRN #30 cap 08/12/19 02/27/20 Rx guaifenesin 600 mg tablet, 600 mg PO BID PRN #30 tab 08/12/19 02/27/20 Rx extended release 12 hr ibuprofen 200 mg capsule 200 mg PO Q4H PRN #30 cap 08/12/19 02/27/20 Rx lisdexamfetamine [Vyvanse] 50 mg PO QAM 10/01/19 02/27/20 History topiramate 50 mg PO BID 10/01/19 02/27/20 History carvedilol 6.25 mg tablet 6.25 mg PO BID #60 tab 12/22/19 02/27/20 Rx lithium carbonate 300 mg 1,200 mg PO HS tab 12/22/19 02/27/20 History tablet,extended release melatonin 5 mg capsule 5 mg PO HS #30 cap 01/26/20 02/27/20 Rx fluticasone propionate 110 2 puff INHALATION BID #12 g 01/28/20 02/27/20 Rx mcg/actuation HFA aerosol inhaler albuterol sulfate 2.5 mg CONTINUOUS NEBULIZATION QID 02/17/20 02/27/20 Rx PRN #15 ml cetirizine 10 mg tablet See Rx Instructions PO QAM #90 tab 02/23/20 02/27/20 Rx allopurinol 100 mg PO QAM 02/27/20 02/27/20 History amlodipine 10 mg PO QAM 02/27/20 02/27/20 History aripiprazole 15 mg PO QAM 02/27/20 02/27/20 History ascorbic acid (vitamin C) 1 g PO QAM 02/27/20 02/27/20 History cholecalciferol (vitamin D3) 50 mcg PO QAM 02/27/20 02/27/20 History divalproex 500 mg PO BID 02/27/20 02/27/20 History famotidine 20 mg PO QAM 02/27/20 02/27/20 History lisinopril 40 mg PO QAM 02/27/20 02/27/20 History methylcellulose (laxative) [Fiber 500 mg PO HS 02/27/20 02/27/20 History Therapy (m-cellulose)] montelukast 10 mg PO HS 02/27/20 02/27/20 History multivitamin [Daily Multi-Vitamin] 1 tab PO QAM 02/27/20 02/27/20 History topiramate 25 mg PO BID 02/27/20 02/27/20 History triamterene-hydrochlorothiazid 1 cap PO QAM 02/27/20 02/27/20 History zinc 50 mg PO QAM 02/27/20 02/27/20 History Past Med/Surg History Medical History Acne Acute kidney injury ADHD (attention deficit hyperactivity disorder), combined type Allergic rhinitis Asthma Elevated fasting glucose Hypertension Hyperuricemia Hypokalemia Leukoplakia, gingiva Obesity Obsessive compulsive disorder PPD+ (purified protein derivative positive) Surgical History History of vasectomy Hx of LASIK Family History Unknown Adopted Other No family history of adverse response to anesthesia No family history of bleeding disorder Social History Smoking Status: Never smoker Second Hand Exposure: No; Hx Alcohol Use: No Hx Substance Use: No current occupational status: employed 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 nontoxic. Skin: Warm, dry, Head: Atraumatic Ears, nose, mouth and throat: airway patent, dry mucous membranes Cardiovascular: Normal peripheral perfusion Respiratory: Snoring respirations secondary to sedatives, mild tachypnea Gastrointestinal: Non distended Musculoskeletal: No deformity Results & Data Results & Data ([facility]) Vital Signs (Past 12 Hours) Vital Signs Temp Pulse Pulse Resp BP Pulse Ox 02/27/20 13:01 69 22 71/31 L 98 02/27/20 12:50 72 19 68/26 L 98 02/27/20 12:49 73 19 68/22 L 98 02/27/20 12:48 71 19 76/26 L 98 02/27/20 12:47 72 21 69/25 L 98 02/27/20 12:45 74 19 78/27 L 97 02/27/20 12:26 71 20 96 02/27/20 11:19 85 97 02/27/20 10:30 92 H 22 125/75 100 02/27/20 10:00 93 H 24 132/59 L 95 02/27/20 09:51 38.3 C H 99 H 18 138/73 98 Code Status & VTE Plan Code Status Full code VTE Prophylaxis Plan VTE Prophylaxis will be ordered: Yes Critical Care Time Critical Care Time: Yes Total Critical Care Time: 50 I have personally spent 50 minutes of critical care time in the direct management of this patient. This is a life/limb threatening event. This includes time spent evaluating patient, direct bedside care, chart review, placing orders, interpretation of diagnostic studies, discussion with consultants, patient, and/or family members regarding treatment decisions, as well as other required patient management activities. This time is exclusive of all separately billable procedures, and teaching time and separate from and in addition to any other critical care service time. PG Care Time/CCT Total # of Minutes Spent Total Time Spent with Patient: Total time spent is greater than 50% in coordinat ion of care (as documented) at patient's floor/unit and/or counseling patient: Critical Care Time: Yes Total Critical Care Time: 50 Coding Level of Care Code None Diagnoses Free [place]il poisoning T56.891A Encounter type: initial encounter Injury intent: accidental or unintentional Acute kidney injury N17.9 Hyperkalemia E87.5 Lactic acidosis E87.2 Hyperuricemia E79.0 Dehydration E86.0 Febrile illness, acute R50.9 Additional Codes Critical Care Time - Critical Care Time: Yes ([id number]) Comment Please code [id number] (1) Free [place] poisoning Encounter type: initial encounter Injury intent: accidental or unintentional Qualified Code(s): T56.891A - Toxic effect of other metals, accidental (unintentional), initial encounter
[2020-02-27] MEDS ORDERED: ICU PROTOCOL FOR HYPERGLYCEMIA PRN (13:46)
--- NOTE | 2020-02-27 13:58 | Nephrology Consultation ---
Date of Consultation February 27, 2020 Assessment & Plan (1) Acute kidney injury: Damir presented with 2 days h/o generalized weakness, diarrhea, decreased po intake and hypotension. Found to have FELIX, Hyperkalemia, Hyperuricemia and [place] Toxicity level >5. FELIX most likely secondary to volume depletion with h/o diarrhea, decreased po intake, diuretics and possibility for urate nephropathy which in turn lead to Hyperkalemia and [place] Toxicity. It is unclear whether he has been voiding last 2 days. --Set up for emergency hemodialysis with 2 K bath for Canyon clearance, no UF, plan for 6 h considering extremely high level and FELIX. Repeat Canyon level 6 h after dialysis to assess for need for additional HD until Canyon level falls below 1 --continue to hold Canyon, all antihypertensive medications. --OK to continue on IV fluid --Martinez catheter, strict Intake and output. If no UO or improvement in renal function, will need USG --check Urine analysis --Repeat uric acid, renal panel daily Will follow Thank you for the consultation, it was a please to see Damir. (2) Hyperkalemia: (3) [place] poisoning: (4) Hyperuricemia: History of Present Illness Reason for Consultation: FELIX, Hyperkalemia, lithium toxicity. For History of Present Illness Mr. Lucas is a 24-year-old young male with PMH of hypertension, Autism, bipolar disorder admitted to hospital with generalized weakness, Hypotension, FELIX, Hyperkalemia and [place] Toxicity. Nephrology Consult requested to manage above with emergency dialysis. Damir [facility] from his [facility] for evaluation of generalized weakness for the past 2 days, lethargy and hypotension with BP 70/40. He was reported to have episode of diarrhea, decreased po intake and not as active as usual. Today he was found crawling around on the floor when BP was 70/40. He has not been complaining of vomiting or having any cough or cold symptoms. COVID was negative. He was not c/o any headache, chest pain, shortness of breath, cough or cold symptoms, nausea or vomiting, abdominal pain, back pain or pain with urination. Received 1 L IV fluid on arrival and continued now on NS. On admission he was found to have FELIX. cr 4.7, K 6.1 and lithium toxicity with lithium level >5. Uric acid was 19, with h/o hyperuricemia, started on Allopurinol just 2 days ago, unclear whether he received any dose yet. He has HTN, which has been poorly controlled and recently needed some medications adjustments. He was started on Triamterene/HCTZ, but developed hypokalemia which improved after Lisinopril was added as he could not take KCL tab. BP improved. UA was unremarkable, b/l cr around 1.1 to 1.2, recently cr slightly increased to 1.4. Has been on multiple medications including Canyon for mood disorder, bipolar and autism. He received Atival and Haldol on admission as he was non cooperative with lab draw and other care initially. He just had rt femoral dialysis catheter placed.Currently he is sleeping and most of the information was from EMR review and discussion with ER physician and his caregiver Tala. Allergies Allergy/AdvReac Type Severity Reaction Status Date / Time erythromycin base Allergy Unknown RASH, Verified 02/27/20 11:00 DIARRHEA Home Medications Medication Instructions Recorded Confirmed Type benzonatate 200 mg capsule 200 mg PO TID PRN #30 cap 08/12/19 02/27/20 Rx guaifenesin 600 mg tablet, 600 mg PO BID PRN #30 tab 08/12/19 02/27/20 Rx extended release 12 hr ibuprofen 200 mg capsule 200 mg PO Q4H PRN #30 cap 08/12/19 02/27/20 Rx lisdexamfetamine [Vyvanse] 50 mg PO QAM 10/01/19 02/27/20 History topiramate 50 mg PO BID 10/01/19 02/27/20 History carvedilol 6.25 mg tablet 6.25 mg PO BID #60 tab 12/22/19 02/27/20 Rx lithium carbonate 300 mg 1,200 mg PO HS tab 12/22/19 02/27/20 History tablet,extended release melatonin 5 mg capsule 5 mg PO HS #30 cap 01/26/20 02/27/20 Rx fluticasone propionate 110 2 puff INHALATION BID #12 g 01/28/20 02/27/20 Rx mcg/actuation HFA aerosol inhaler albuterol sulfate 2.5 mg CONTINUOUS NEBULIZATION QID 02/17/20 02/27/20 Rx PRN #15 ml cetirizine 10 mg tablet See Rx Instructions PO QAM #90 tab 02/23/20 02/27/20 Rx allopurinol 100 mg PO QAM 02/27/20 02/27/20 History amlodipine 10 mg PO QAM 02/27/20 02/27/20 History aripiprazole 15 mg PO QAM 02/27/20 02/27/20 History ascorbic acid (vitamin C) 1 g PO QAM 02/27/20 02/27/20 History cholecalciferol (vitamin D3) 50 mcg PO QAM 02/27/20 02/27/20 History divalproex 500 mg PO BID 02/27/20 02/27/20 History famotidine 20 mg PO QAM 02/27/20 02/27/20 History lisinopril 40 mg PO QAM 02/27/20 02/27/20 History methylcellulose (laxative) [Fiber 500 mg PO HS 02/27/20 02/27/20 History Therapy (m-cellulose)] montelukast 10 mg PO HS 02/27/20 02/27/20 History multivitamin [Daily Multi-Vitamin] 1 tab PO QAM 02/27/20 02/27/20 History topiramate 25 mg PO BID 02/27/20 02/27/20 History triamterene-hydrochlorothiazid 1 cap PO QAM 02/27/20 02/27/20 History zinc 50 mg PO QAM 02/27/20 02/27/20 History Patient History Medical History Acne Acute kidney injury ADHD (attention deficit hyperactivity disorder), combined type Allergic rhinitis Asthma Elevated fasting glucose Hypertension Hyperuricemia Hypokalemia Leukoplakia, gingiva Obesity Obsessive compulsive disorder PPD+ (purified protein derivative positive) Surgical History History of vasectomy Hx of LASIK Family History Unknown Adopted Other No family history of adverse response to anesthesia No family history of bleeding disorder Social History Smoking Status: Never smoker Second Hand Exposure: No; Hx Alcohol Use: No Hx Substance Use: No current occupational status: employed 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 Feels Safe at Home: Yes Review of Systems Review of Systems: Unobtainable due to reduced consciousness Physical Exam Constitutional: sedated Neck: normal visual inspection Respiratory: normal respiratory effort; no respiratory distress Auscultation: + rales Cardiovascular: RRR, no murmur, no edema Gastrointestinal (Abdomen): normal bowel sounds, soft, nontender, no hepatosplenomegaly Skin: no rashes, warm and dry Neurologic: sedated, detail exam was not possible Psychiatric: Thought Process: + clanging Results & Data ([facility]) Vital Signs (Past 12 Hours) Vital Signs Temp Pulse Pulse Resp BP Pulse Ox 02/27/20 13:01 69 22 71/31 L 98 02/27/20 12:50 72 19 68/26 L 98 02/27/20 12:49 73 19 68/22 L 98 02/27/20 12:48 71 19 76/26 L 98 02/27/20 12:47 72 21 69/25 L 98 02/27/20 12:45 74 19 78/27 L 97 02/27/20 12:26 71 20 96 02/27/20 11:19 85 97 02/27/20 10:30 92 H 22 125/75 100 02/27/20 10:00 93 H 24 132/59 L 95 02/27/20 09:51 38.3 C H 99 H 18 138/73 98 PG Care Time/CCT Total # of Minutes Spent Total Time Spent with Patient: Total time spent is greater than 50% in coordination of care (as documented) at patient's floor/unit and/or counseling patient: Coding Level of Care Code 78895 Inpt Consult Level 5 Diagnoses Acute kidney injury N17.9 Hyperkalemia E87.5 [place] poisoning T56.891A Encounter type: initial encounter Injury intent: accidental or unintentional Hyperuricemia E79.0 (1) [place] poisoning Encounter type: initial encounter Injury intent: accidental or unintentional Qualified Code(s): T56.891A - Toxic effect of other metals, accidental (unintentional), initial encounter
[2020-02-27] MEDS ORDERED: NORMOSOL-R 1,000 ML IV SCH (14:00)
--- NOTE | 2020-02-27 14:03 | Procedure Note ---
Procedure Note Date of Service February 27, 2020 Procedure date: Noted above Procedure: Central venous access with hemodialysis catheter Pre-procedure indication: Need for emergent hemodialysis Post-procedure Diagnosis: same as above Prior to Procedure: Informed Consent: Emergent consent implied Attending Staff: Magi Gonzales DO Resident/APC: Eliza Skin Prep: Chlorhexidine Anesthesia: 4 mL 1% lidocaine without epinephrine The identity of the patient was confirmed and a bedside time out was performed. Description of Procedure: After sterile prep and sterile drape utilizing standard sterile technique the superficial skin of the right femoral area was anesthetized. The target vessel was identified and entered with an 18-gauge needle. Dark venous blood return was noted. A guidewire was inserted through the needle and into the vessel. The needle was withdrawn and a skin loraine was made. A tissue dilator was advanced via Seldinger technique and removed. A triple lumen catheter was inserted via Seldinger technique and the guidewire removed. All ports shaggy and flushed easily. A Biopatch was placed, and the catheter was secured via nylon suture. A sterile dressing was then applied. Complications: None Estimated blood loss: Trace Patient tolerated the procedure well. I was physically present and assisted with the entire procedure performed by Dr. Kay Coding CPT Codes Tubes, Drains, and Vasc Access - Tubes, Drains, and Vasc Access: [id number] Insertion of cannula for hemodialysis ([id number]) [facility] [place]) Tubes, Drains, and Vasc Access Procedure 1: Tubes, Drains, and Vasc Access: [id number] Insertion of cannula for hemodialysis
[2020-02-27] MEDS ORDERED: DEXTROSE 50% 50 ML SYRINGE IV ONE ×2 (14:19)
[2020-02-27] MEDS ORDERED: SODIUM BICARB 8.4% INJ 50 MEQ/50 ML SYR IV ONE ×2 (14:31→17:52)
[2020-02-27] MEDS ORDERED: NOREPINEPHRINE/D5W 8 MG/508 ML BAG IV SCH ×2 (14:32→19:15)
[2020-02-27] MEDS ORDERED: STAT IV Infusion **Titration per Protocol STA ×4 (14:32→21:28)
[2020-02-27] MEDS ORDERED: SODIUM BICARB 8.4% INJ 50 MEQ/50 ML SYR IV STA ×3 (14:32→17:52)
[2020-02-27 14:45] LABS: Appearance Urine Cloudy (Clear); Bacteria Urine Automated Negative (Negative); Blood Urine Negative (Negative); Color Urine Dark Yellow; Epithelial Cell Urine Auto 20-30 /lpf (0-5); Glucose Urine UA Negative (Negative); Ketones Urine 1+ (Negative); Leukocyte Esterase Urine Trace (Negative); Nitrite Urine Negative (Negative); Protein Urine 2+ (Negative); RBC Urine Automated 0-4 /hpf (0-4); Specific Gravity Urine 1.018 (1.000-1.030); Urobilinogen Urine Negative (Negative)
[2020-02-27 14:52] LABS: Bilirubin Urine Negative (Negative); Ictotest Urine Negative (Negative)
--- NOTE | 2020-02-27 14:56 | Critical Care Consultation ---
Date of Consultation February 27, 2020 Assessment & Plan (1) Admitted to intensive care unit: Reason Critically Ill: Damir Lucas is a 24 yo M with a PMHx of autism (resides in a senior living) who was admitted to [facility] on 02/27/20. On arrival he was found to be hypotensive, secondary to septic shock. SIRS criteria met on admission (WBC > 12k, temp 38.4). He was volume resuscitated and placed on IV Zosyn and Vancomycin. Vasopressors were added when MAPs remained below goal despite volume resuscitation. His respiratory status progressively worsened while in the ED, ultimately requiring intubation and mechanical ventilation for airway protection. Patient also found to be in acute lithium toxicity, level 5.5 on arrival. A hemodialysis catheter was placed in the emergency department and nephrology was consulted in preparation for emergent hemodialysis. Neuro: * Sunsites Toxicity - level 5.5 on admission - QTc mildly prolonged at 482ms, no bradycardia - suspect patient is on regular regimen and clearance impaired in setting of FELIX > overdose - salicylates and acetaminophen levels undetectable; no evidence of co- ingestion - IVF given in ED - nephrology consulted, patient to undergo emergent hemodialysis - will order Urine lytes and osmolality to assess for diabetes insipidus (although suspicion is low given hyponatremia) - TSH ordered - repeat level 6 hours after hemodialysis * Hx Bipolar disorder - on lithium as above; dosing regimen is 300mg, 1 tab in am, 4 tabs at bedtime (total of 1200mg daily) - on Lamictal 200mg, BID for mood symptoms * Hx Autism - patient lives in senior living - 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 - permission granted to have caregiver at bedside while hospitalized * Hx ADHD - patient is on Vyvanse 50mg qam and Aripiprazole at home * Hx Obsessive Compulsive Disorder - patient is on Fluvoxamine 100mg, daily at home - on Topamax at home for impulse control Cardiac: * Hypotension - secondary to septic shock - MAP below goal at 58 - patient has been volume resuscitated - norepinephrine added for pressure support - random cortisol level ordered - hold all anti-hypertensive medications * History of HTN - home regimen consists of lisinopril 40mg qam, amlodipine 10mg, daily carvedilol 6.25mg, BID, triamterene-HCTZ 1 cap, qAM - hold all anti-hypertensives given hypotension - EKG showing NSR at [address] interval. QTc mildly prolonged at 482 ms. Right axis deviation. RBBB. No peaked T waves. No ST segment changes. Respiratory: * VDRF - patient intubated on admission for airway protection - Keep RASS -1 - Daily sedation holidays and SBT's * Hx of Asthma - home regimen consists of montelukast 10mg QHS and Albuterol prn - nebulizer treatment given in ED * Hx of + PPD - subsequent interferon gold testing negative GI: * Diarrhea - reported by caregivers at [employer] - etiology: infectious (viral gastroenteritis) vs. 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 does work in a healthcare facility - volume resuscitation and dialysis as above - patient is on famotidine 20mg, daily as outpatient, presumably for GERD RENAL/LYTES: * FELIX - Cr 4.57 on admission, baseline Cr 1.1-1.20 - BUN elevated to 92; ratio 20.1 - suspect prerenal etiology as patient was hypotensive on arrival, reported reduced PO intake and diarrhea by caretakers at senior living - volume resuscitation in ED (2L normal saline bolus) - trend BMP - emergent dialysis as above - nephrology following * Lactic Acidosis with Respiratory Alkalosis - lactate 2.6 on admission --> cleared to 0.5 with IVF - bicarb at 22; AG at 6 - pH 7.35, PCO2 37 - suspect secondary to FELIX - emergent hemodialysis as above * Hyperkalemia - level 6.1 on admission - EKG without peaked T waves; CT interval normal. - patient given 10 units of regular insulin in ED - emergent hemodialysis as above - trend BMP * Hyperuricemia - uric acid elevated to 19.4 on admission - patient is on allopurinol 100mg at home - emergent hemodialysis as above - trend level * Hyponatremia - Na level 134 on admission - patient given 2L of normal saline bolus - trend BMP - makes diabetes insipidus unlikely - trend BMP : - Martinez catheter placed in ED to measure Is/Os - UA pending ENDO: - no history of underlying diabetes - BG 105 on admission - TSH pending (given lithium toxicity) HEME: - Hgb and platelets normal - no issues ID: * Septic Shock - SIRS criteria met on admission (WBC > 12,000, fever to 38.4, SBP < 90) - patient volume resuscitated in the ED with 2L normal saline bolus - Lactate elevated to 2.6, cleared to 0.5 with IVF - COVID neg. Influenza A and B neg. Respiratory Biofire negative. Procal 0.76 (not significantly elevated in setting of ACI) UA pending. Blood cultures obtained. CXR showing R lower lobar infiltrates. - Pneumonia as possible infectious source? - nasal MRSA pending - continue IV Zosyn and Vancomycin LINES/IV ACCESS: Hemodialysis cath placed in R femoral vein, PIVs, Martinez cath CODE STATUS: Full DVT PROPHYLAXIS: SCDs Thank you for allowing us to participate in the care of this patient. Please refer to my attending physician's documentation for any further recommendations. Supervising Physician Co-Signing Physician Notes Dr Kay was the resident-physician during care of patient. I separately evaluated patient for goff portions of the history and the exam. I was present during the critical portion of medical decision making, and I discussed the case with the resident. I generally agree with the findings and plan except for any additions/exceptions noted. Patient seen and examined at bedside. Patient presented to the ED with hypotension and acute renal failure along with lithium level of 5.1 which is severely elevated. Plan to dialyze the patient was made in the ED. Right-sided femoral catheter was placed in by Dr. Kay. Patient was also in respiratory distress. The intubation was difficult in the ED. With multiple attempts, eventually leading to emergency trach. 6.5 ETT was able to be passed through the mouth and the end. Patient had respiratory arrest and was coded with 1 round of CPR. ROSC was achieved. At the time of examination patient saturation was 76% on 100% FiO2 with PEEP of 12 and respiratory rate of 16. I increase the PEEP to 15, and increased respiratory to 24 to see if this will help with oxygenation. Patient had no pupillary reflex they were pinpoint. Patient had dressing placed at the trach site with attempt of tracheostomy was made. He had a 6.5 ETT. He was actively getting dialyzed. Map was in the high 60s. No response to pain or deep stimuli. I personally is spoke with Melany Green. I discussed the prognosis and the current condition of the patient. Ms. Mosley who is the POA in [place] spoke with the guardian in [place] and they agree not to elevate the care and move towards comfort measures. All questions inquiries were answered in depth. Gift of life was notified. Continue with ventilator support and vasopressor support to keep map greater than 65. Father was at bedside, all questions inquiries were answered in depth. I have personally spent 71 minutes of critical care time in the direct management of this patient. This is a life/limb threatening event. This includes time spent evaluating patient, direct bedside care, chart review, placing orders, interpretation of diagnostic studies, discussion with consultants, patient, and/or family members regarding treatment decisions, as well as other required patient management activities. This time is exclusive of all separately billable procedures, and teaching time and separate from and in addition to any other critical care service time. History of Present Illness History of Present Illness Damir is a 24 yo M with a PMHx of autism who lives in a senior living ([facility]) who was brought in by his caregivers after 2-3 days of progressive weakness. Staff of senior living reported diarrhea, reduced PO intake, and behavior change, but no cough, sore throat, headache, or nausea/vomiting. On the day of admission, he was found crawling on the ground by caregivers; a nurse took his BP and noted it to be 70/40, which prompted his transport to the [facility] Emergency Department. On arrival, he was agitated and was administered 2mg IM Ativan and 5mg IM Haldol. He was found to be in septic shock (SBP 71, MAP 44) and in acute lithium toxicity (blood level 5.5). Patient was bloused with 2 liters of IVF and started of IV Zosyn and vancomycin for possible bacterial pneumonia. A hemodialysis catheter was placed in the R femoral vein by critical care staff while the patient was in the ED in preparation for emergent dialysis. 10 units of regular insulin was administered for his hyperkalemia. Patient was initially breathing well on room air, but was later placed on oxymask when his oxygen saturations reduced to the low 80s. Patient was transferred to the ICU for close monitoring in the setting of septic shock and elevated lithium level. Allergies Allergy/AdvReac Type Severity Reaction Status Date / Time erythromycin base Allergy Unknown RASH, Verified 02/27/20 11:00 DIARRHEA Home Medications Medication Instructions Recorded Confirmed Type benzonatate 200 mg capsule 200 mg PO TID PRN #30 cap 08/12/19 02/27/20 Rx guaifenesin 600 mg tablet, 600 mg PO BID PRN #30 tab 08/12/19 02/27/20 Rx extended release 12 hr ibuprofen 200 mg capsule 200 mg PO Q4H PRN #30 cap 08/12/19 02/27/20 Rx lisdexamfetamine [Vyvanse] 50 mg PO QAM 10/01/19 02/27/20 History topiramate 50 mg PO BID 10/01/19 02/27/20 History carvedilol 6.25 mg tablet 6.25 mg PO BID #60 tab 12/22/19 02/27/20 Rx lithium carbonate 300 mg 1,200 mg PO HS tab 12/22/19 02/27/20 History tablet,extended release melatonin 5 mg capsule 5 mg PO HS #30 cap 01/26/20 02/27/20 Rx fluticasone propionate 110 2 puff INHALATION BID #12 g 01/28/20 02/27/20 Rx mcg/actuation HFA aerosol inhaler albuterol sulfate 2.5 mg CONTINUOUS NEBULIZATION QID 02/17/20 02/27/20 Rx PRN #15 ml cetirizine 10 mg tablet See Rx Instructions PO QAM #90 tab 02/23/20 02/27/20 Rx allopurinol 100 mg PO QAM 02/27/20 02/27/20 History amlodipine 10 mg PO QAM 02/27/20 02/27/20 History aripiprazole 15 mg PO QAM 02/27/20 02/27/20 History ascorbic acid (vitamin C) 1 g PO QAM 02/27/20 02/27/20 History cholecalciferol (vitamin D3) 50 mcg PO QAM 02/27/20 02/27/20 History divalproex 500 mg PO BID 02/27/20 02/27/20 History famotidine 20 mg PO QAM 02/27/20 02/27/20 History lisinopril 40 mg PO QAM 02/27/20 02/27/20 History methylcellulose (laxative) [Fiber 500 mg PO HS 02/27/20 02/27/20 History Therapy (m-cellulose)] montelukast 10 mg PO HS 02/27/20 02/27/20 History multivitamin [Daily Multi-Vitamin] 1 tab PO QAM 02/27/20 02/27/20 History topiramate 25 mg PO BID 02/27/20 02/27/20 History triamterene-hydrochlorothiazid 1 cap PO QAM 02/27/20 02/27/20 History zinc 50 mg PO QAM 02/27/20 02/27/20 History Patient History Medical History Acne Acute kidney injury ADHD (attention deficit hyperactivity disorder), combined type Allergic rhinitis Asthma Elevated fasting glucose Hypertension Hyperuricemia Hypokalemia Leukoplakia, gingiva Obesity Obsessive compulsive disorder PPD+ (purified protein derivative positive) Surgical History History of vasectomy Hx of LASIK Family History Unknown Adopted Other No family history of adverse response to anesthesia No family history of bleeding disorder Social History Smoking Status: Never smoker Second Hand Exposure: No; Hx Alcohol Use: No Hx Substance Use: No current occupational status: employed 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 Feels Safe at Home: Yes Review of Systems Review of Systems: Unobtainable due to cognitive status Physical Exam Constitutional: + ill appearing and + obese Eyes: closed ENMT: external ear and nose normal, oropharynx normal Neck: normal visual inspection and trachea midline Respiratory: + respiratory distress; no cough Auscultation: + rhonchi Cardiovascular: RRR, no murmur, no edema Heart Sounds: normal S1 and normal S2 Extremities: + vascular access device (hemodialysis catheter placed in R femoral vein ) Gastrointestinal (Abdomen): Inspection/Auscultation: + abdomen distended Percussion/Palpation: abdomen soft Skin: no rashes, warm and dry Results & Data Results & Data ([facility]) Vital Signs (Past 12 Hours) Vital Signs Temp Pulse Pulse Resp BP Pulse Ox 02/27/20 13:01 69 22 71/31 L 98 02/27/20 12:50 72 19 68/26 L 98 02/27/20 12:49 73 19 68/22 L 98 02/27/20 12:48 71 19 76/26 L 98 02/27/20 12:47 72 21 69/25 L 98 12/25/20 12:45 74 19 78/27 L 97 02/27/20 12:26 71 20 96 02/27/20 11:19 85 97 02/27/20 10:30 92 H 22 125/75 100 02/27/20 10:00 93 H 24 132/59 L 95 02/27/20 09:51 38.3 C H 99 H 18 138/73 98 Resident Activity Tracking Resident Involvement: Resident Care Provided Care Provided: Adult Hospital Medicine
[2020-02-27 15:12] LABS: Adenovirus PCR Not Detected (NotDetected); Bordetella parapertussis PCR Not Detected (NotDetected); Bordetella pertussis PCR Not Detected (NotDetected); Chlamydia pneumoniae PCR Not Detected (NotDetected); Coronavirus 229E PCR Not Detected (NotDetected); Coronavirus CoV-2 (COVID19)PCR Not Detected (NotDetected); Coronavirus HKU1 PCR Not Detected (NotDetected); Coronavirus NL63 PCR Not Detected (NotDetected); Coronavirus OC43PCR Not Detected (NotDetected); Human Metapneumovirus PCR Not Detected (NotDetected); Influenza A PCR Not Detected (NotDetected); Influenza B PCR Not Detected (NotDetected); Mycoplasma pneumoniae PCR Not Detected (NotDetected); Parainfluenza Virus 1 PCR Not Detected (NotDetected); Parainfluenza Virus 2 PCR Not Detected (NotDetected); Parainfluenza Virus 3 PCR Not Detected (NotDetected); Parainfluenza Virus 4 PCR Not Detected (NotDetected); Respiratory Syncytial VirusPCR Not Detected (NotDetected); Rhinovirus/Enterovirus PCR Not Detected (NotDetected)
[2020-02-27] MEDS ORDERED: VANCOMYCIN CONSULT ACTIVE PRN ×2 (15:31→18:11)
[2020-02-27] MEDS ORDERED: VANCOMYCIN HCL 1,750 MG in SODIUM CHLORIDE 0.9% 500 ML IV STA (15:32)
[2020-02-27 15:42] LABS: Alanine Aminotransferase 26 U/L (12-78); Albumin Globulin Ratio 0.9 (0.9-2); Albumin Level 2.8 gm/dl (3.4-5.0); Alkaline Phosphatase 77 U/L (45-117); Aspartate Aminotransferase 23 U/L (15-37); BUN Creatinine Ratio 19.1 (10-20); Bilirubin,Total 0.9 mg/dl (0.2-1); Blood Urea Nitrogen 89 mg/dl (7-18); Calcium 7.5 mg/dl (8.5-10.1); Carbon Dioxide 28 mmol/L (21-32); Chloride 109 mmol/L (98-107); Est GFR (African American) 18.7; Est GFR (Non-African American) 16.1; Globulin 3.1 gm/dl (2.5-4.0); Glucose 278 mg/dl (70-99); Potassium 5.9 mmol/L (3.5-5.1); Sodium 138 mmol/L (136-145); Total Protein 5.9 gm/dl (6.4-8.2)
[2020-02-27] MEDS ORDERED: RAPID SEQUENCE INDUCTION BAG ONE (16:23)
[2020-02-27 16:42] LABS: Cortisol Random 30.46 mcg/dl; Hepatitis B Surface Ab Quant 46.19 mIU/mL (>or=10mIU/mL Immune); Hepatitis B Surface Antibody Immune
[2020-02-27 16:45] LABS: Potassium Random Urine 46.5 mmol/L
[2020-02-27 16:50] LABS: Uric Acid Urine Random 47.4 mg/dl
[2020-02-27 16:53] LABS: Hepatitis B Surf Ag Rflx Conf Neg (Neg)
[2020-02-27] MEDS ORDERED: fentaNYL citrate 100 MCG/2 ML VIAL ONE ×2 (17:01→19:08)
--- NOTE | 2020-02-27 17:10 | Emergency Department Note ---
ED Visit Note Endotracheal Intubation Indication cardiac arrest and hypoxia. The patient had cardiac arrest and respiratory failure. He had renal failure with lithium toxicity. He was managed with positive pressure ventilation. His oxygen saturation continued to drop. The patient had attempts made to intubate but because of the patient's anatomy and upper airway edema they were unsuccessful. I was asked to evaluate the patient's airway. The patient was in significant hypoxia. Further cardiac and resuscitation medications were managed by the admitting team. The patient was on 100% oxygen via NRB prior to the procedure. Suction, airway equipment, respiratory equipment, and appropriate personnel were prepared prior to the initiation of the procedure. The airway was easily visualized utilizing a glide scope. A 6.5 size ETT tube was placed atraumatically to 25 cm using standard technique. The cuff inflated without signs of malfunction. There were bilateral breath sounds, positive colormetric change, no gastric sounds, a good capnography waveform, and post procedure pulse oximetry was 78%. Significant upper airway edema was noted. There were no complications. . : [place] toxicity Qualifiers: Encounter type: initial encounter Injury intent: accidental or unintentional Qualified Code(s): T56.891A - Toxic effect of other metals, accidental (unintentional), initial encounter Sepsis Qualifiers: Sepsis type: sepsis due to unspecified organism Sepsis acute organ dysfunction status: with acute organ dysfunction Severe sepsis acute organ dysfunction type: acute renal failure Acute renal failure type: unspecified Severe sepsis shock status: with septic shock Qualified Code(s): A41.9 - Sepsis, unspecified organism Respiratory failure Qualifiers: Chronicity: acute Respiratory failure complication: hypoxia Qualified Code(s): J96.01 - Acute respiratory failure with hypoxia
--- NOTE | 2020-02-27 17:20 | XRay Report ---
XR chest 1V portable CLINICAL HISTORY: Hypoxia RESPIRATORY FAILURE COMPARISON STUDY: 02/27/2020 FINDINGS: The heart is borderline enlarged. There is been interval placement of an endotracheal tube which projects into the left mainstem bronchus, 24 mm distal to the jennifer. The tube should be reposi tioned. This finding will be called to the floor. There is gastric distention. There is new right upp er lobe consolidation/collapse. There are left upper lobe airspace opacities. Left lower lobe air bro nchograms are also visualized.[ IMPRESSION: 1. Progressive multifocal airspace opacities 2. Endotracheal tube positioned in the left mainstem bronchus. This tube should be repositioned 3. Gastric distention ACT 112: Negative or not required by law. Electronically signed by: Guy Tomlin M.D. 02/27/2020 5:18 PM
[2020-02-27 17:50] LABS: iSTAT Allen Test Pass; iSTAT Arterial Blood Gas HCO3 27 meg/L (19-24); iSTAT Arterial Blood Gas pCO2 89 mmHg (35-46); iSTAT Arterial Blood Gas pH 7.09 (7.35-7.45); iSTAT Arterial Blood Gas pO2 < 32 mmHg (80-95); iSTAT Carbon Dioxide 29 mmol/L (24-31); iSTAT FiO2 100 %; iSTAT Site L Brachial
[2020-02-27] MEDS ORDERED: ALBUTEROL 0.083% NEBU SOLN 3 ML VIAL INH PRN (18:11)
[2020-02-27] MEDS ORDERED: VANCOMYCIN HCL 1,750 MG in SODIUM CHLORIDE 0.9% 500 ML IV ONE (18:11)
[2020-02-27] MEDS ORDERED: THIAMINE HCL 200 MG in SODIUM CHLORIDE 0.9% 50 ML IV STA (18:29)
--- NOTE | 2020-02-27 18:52 | Billing Data ---
Date of Service February 27, 2020 Coding Level of Care Code Critical Care 1st 30-74 mins Time Spent (min) 71
[2020-02-27] MEDS ORDERED: fentaNYL DRIP 1,250 MCG/250 ML BAG IV SCH (19:00)
[2020-02-27] MEDS ORDERED: fentaNYL citrate 100 MCG/2 ML VIAL IV STA (19:08)
[2020-02-27] MEDS ORDERED: TRANEXAMIC ACID / 0.7% NACL 1,000 MG/100 ML BAG IV STA (19:08)
--- NOTE | 2020-02-27 19:48 | Communication Note ---
Date of Service: February 27, 2020 I was approached by respiratory therapist with ABG results, the patient's PO2 was approximately 47 and saturating 87%. I went to the room and the patient was not tolerating Vapotherm oxygen therapy. The patient was becoming increasingly agitated and was attempting to get out of bed, his sats continued to deteriorate. At this point I made the decision to proceed with intubation. As he was saturating in the high 80s via the pulse oximetry I was aware this would be a difficult airway given his anatomy, partial larry, and probable anatomic difficulties given developmental delay. As the patient continued to become more and more agitated we was given 6 mg of Versed and 100 mg of fentanyl he was positioned and then he was given 50 mg of rocuronium. He had mild difficulty with [id number] ventilation secondary to redundant tissues. My first attempt was with a Conklin 3 blade and I was unable to visualize the glottic opening nor the epiglottis. The airway was obviously swollen and edematous. At this point I inserted a nasal trumpet which did allow us to bag the patient a little bit easier however he continued to deteriorate his oxygen saturation and at times he was not reading and we were going largely off of clinical findings such as color. Patient also had bloody secretions coming out from nasal trumpet. I believe this was pulmonary edema. On second attempt I used a MAC 4 and I was able to visualize the glottic opening and a grade 2 view with bimanual laryngoscopy. I was able to pass a gum rubber bougie into the airway however unable to pass a 7.5 endotracheal tube into the glottic opening given the amount of edema in the vocal cords, arytenoid cartilages and laryngeal tissues. As the patient desaturated the decision was made to remove the endotracheal tube and bougie to facilitate [id number] and he was bagged with a oropharyngeal airway as well as nasal trumpet. While the patient was able to bag easier we were not achieving any significant increase in oxygen saturation which was reading in the 50s and 40s. The patient did at 1 point looks slightly ashen however he did improve. At this point additional help was being called for and I proceeded with a video laryngoscopy with a 4 blade. I was able to visualize the glottic opening however due to the patient's anatomy with significant anterior airway I was unable to conform the endotracheal tube to enter the glottic opening. At this point additional ED providers were at the bedside who also attempted endotracheal intubation. The patient also became bradycardic and experienced a cardiac arrest. He received 1 round of epinephrine approximately 2 minutes of CPR and had return of spontaneous circulation. While this was occurring I was prepping for a retrograde intubation with a central line kit. First attempt I was able to have air enter the syringe and I attempted to pass a guidewire superiorly, this occurred while Dr. Hollingsworth was attempting video laryngoscopy for endotracheal intubation. He was unable to intubate the patient's endotracheally, we were unable to visualize the guidewire coming out of the glottic opening. A second attempt was made and again was able to have air enter the syringe which was disconnected and I attempted again to place a guidewire this was as Dr. Hollingsworth again attempted to intubate the patient from above via video laryngoscopy. He was also unable to pass an endotracheal tube and during this time I was unable to visualize the guidewire emanating from the glottic opening further attempts were aborted. At this point duration that it passed and the patient's persistent hypoxia via oxygen saturation the decision was made That I would proceed with cricothyrotomy while Dr. Calvert attempted endotracheal intubation. A vertical incision was made at the approximate space of the cricothyroid membrane. Immediately there was blood return, I was able to palpate the cricothyroid rings and the patient's airway dove posteriorly and inferiorly. I was able to bluntly dissect via palpation to the cricothyroid membrane, I could feel a small incision that I had made into the windpipe itself, however I was unable to pass a bougie through that opening. Continently Dr. Calvert was setting up for video laryngoscopy. Ultimately Dr. Calvert was able to pass a 6.5 nasotracheal tube and I was able to feel this anterior the trachea. At this point the placement was confirmed by end-tidal CO2 measurement and bilateral breath sounds. Given the bleeding and emergent nature, staff was unable to provide me with Vaseline gauze I elected to proceed with 1 piece of combat gauze inserted into the surgical opening to coagulate additional bleeding and an occlusive dressing was placed over the top to prevent air leak. The patient's volumes when attached to the ventilator appeared appropriate. At this point a chest x-ray was obtained, the endotracheal tube was noted to be passing into the left bronchus. This was retracted 3 cm and secured. At this point given the patient's acute kidney injury need for emergent dialysis we were able to confirm that the dialysis nurse was not present in the building and the decision was made to proceed immediately to dialysis given his cardiac arrest which could have been contributed to by hyperkalemia and electrolyte disturbances as well as hypoxia. Another ABG was obtained, this was also repeatedly obtained by other providers because the blood was so dark and when run under the analyzer it was profoundly hypoxic. The respiratory therapist was able to obtain a specimen that was pulsatile, extremely dark and when run on the machine it was 7.09 with a PCO2 of 89 PO2 less than 32 with an oxygen saturation of 13%. This was probable arterial blood as the patient's pulse oximetry was continuing to read in the 50th percentile. The patient was transported to the ICU where hemodialysis was attempted to be initiated. I contacted the patient's guardian at this point. She informed me that the patient was a DO NOT RESUSCITATE in event of cardiac arrest. Given the profound hypoxia for an extended period along with the acute kidney injury I felt that the patient was in an active dying process, this was confirmed with Dr. Hollingsworth who had seen the patient in the emergency department. The patient's surrogate contacted other caregivers/surrogate decision makers and all were in agreement to discontinue the heroic efforts after the father was able to present to the bedside to visit the patient. I have personally spent 95 minutes of critical care time in the direct management of this patient. This is a life/limb threatening event. This includes time spent evaluating patient, direct bedside care, chart review, placing orders, interpretation of diagnostic studies, discussion with consultants, patient, and/or family members regarding treatment decisions, as well as other required patient management activities. This time is exclusive of all separately billable procedures, and teaching time and separate from and in addition to any other critical care service time. Coding Level of Care Code Critical Care ea addt'l 30 min
[2020-02-27] MEDS ORDERED: PIPERACILLIN/TAZOBACTAM 4.5 GM in DEXTROSE 5% 100 ML IV SCH (20:00)
[2020-02-27] MEDS ORDERED: PROPOFOL IV EMULSION 10 MG/ML 100 ML VIAL IV ONE (21:26)
[2020-02-27] MEDS ORDERED: PROPOFOL BOLUS FROM BAG IV PRN (21:28)
[2020-02-27] MEDS ORDERED: LORazepam 2 MG/4 ML VIAL IV PRN (21:28)
[2020-02-27] MEDS ORDERED: propofoL 1,000 MG/100 ML VIAL IV SCH (21:30)
[2020-02-27] MEDS ORDERED: Nursing to Pharmacy Communication SCH (21:30)
[2020-02-27] MEDS ORDERED: ACETAMINOPHEN 1,000 MG/100 ML VIAL IV PRN (21:33)
[2020-02-28] MEDS ORDERED: THIAMINE HCL 100 MG in SYRINGE 9 ML IV SCH (09:00)
[2020-02-28] MEDS ORDERED: ARIPiprazole 15 MG TAB PO SCH (09:00)
--- NOTE | 2020-02-28 13:22 | Electrocardiogram Report ---
Test Reason : Blood Pressure : / mmHG Vent. Rate : 096 BPM Atrial Rate : 096 BPM P-R Int : 174 ms QRS Dur : 108 ms QT Int : 382 ms P-R-T Axes : 028 125 033 degrees QTc Int : 482 ms Normal sinus rhythm Right axis deviation Incomplete right bundle branch block Prolonged QT Abnormal ECG When compared with ECG of 18-JUL-2016 14:39, QT has lengthened Confirmed by Wilver Holder ([id number]) on 02/28/2020 1:21:44 PM Referred By: REFERRED SELF Confirmed By:Wilver Holder
[2020-03-01 14:30] LABS: iSTAT Arterial Blood Gas pCO2 37 mmHg (35-46); iSTAT Arterial Blood Gas pH 7.35 (7.35-7.45); iSTAT Arterial Blood Gas pO2 47 mmHg (80-95); iSTAT Hematocrit 40 % (42-52); iSTAT Hemoglobin 13.6 g/dl (14.0-18.0); iSTAT Potassium 5.6 mmol/L (3.3-5.0); iSTAT Sodium 139 mmol/L (135-144)
[2020-03-01 14:31] LABS: iSTAT Arterial Blood Gas HCO3 21 meg/L (19-24); iSTAT Carbon Dioxide 22 mmol/L (24-31); iSTAT Sample Type Arterial
== END 2020-02-27 23:59 | disposition expired | DRG 871 ==
LOC: ED 09:42 → 1E 13:46